=== PATIENT | male | born 1970 | race Caucasian/White ===

== ENCOUNTER 2019-05-04 12:49 | Emergency (ER) | payer BC, SELFPAY ==
[2019-05-04 12:49] VITALS: BP 157/88; PULSE 71; RESP 16; TEMP 36.6; O2SAT 99; BMI 28.0
--- NOTE | 2019-05-04 13:05 | CT_ITS ---
STUDY: CT ABDOMEN AND PELVIS WITH CONTRAST REASON FOR EXAM: Male, 48 years old. Abdominal pain. History of diverticulitis. RADIATION DOSAGE (If Supplied By Facility): CTDIvol = ( 14.46 ) mGy, DLP = ( 962.00 ) mGycm TECHNIQUE: Transaxial images were obtained from the dome of the diaphragm to the symphysis pubis with oral contrast. IV/Oral Isovue 300 100mL was administered. Sagittal and coronal images were reconstructed. Individualized dose optimization techniques were used for this CT. COMPARISON: None. FINDINGS: The visualized lung bases are unremarkable. The visualized portions of the heart are within normal limits. There is decreased attenuation of the liver consistent with steatosis. There is hepatomegaly. Normal gallbladder and extrahepatic biliary system. Normal spleen. Normal pancreas. Normal bilateral adrenal glands. Normal right kidney. Normal left kidney. Normal visualized stomach. Normal small intestine. There is a 7 cm segment of bowel wall thickening, diverticulitis, and pericolonic stranding in the mid descending colon. This is probably diverticulitis, but a more significant process is not excluded and follow-up colonoscopy recommended after treatment. No evidence for abscess or perforation. The appendix is visualized and appears normal. Normal abdominal aorta. Normal inferior vena cava. Normal retroperitoneum. Normal urinary bladder. There is enlargement of the prostate gland. Normal abdominal wall. There are diffuse degenerative changes of the visualized lumbar spine. CT/Abdomen/Pelvis WITH Contrast IMPRESSION: Inflammatory process of the mid descending colon most likely diverticulitis, but the length of the processes somewhat atypical and follow-up recommended. Electronically Signed: Elías Arias MD at 15:36 EDT , Service support ,
--- NOTE | 2019-05-04 13:06 | ED.DCSUM_ITS ---
History of Present Illness Chief Complaint: Abd Pain Informant: Patient Onset: Days - 3 days Context: Gradual Onset Timing: Waxes and wanes Current Severity: Moderate Maximum Severity: Moderate Narrative: Patient has a history of diverticulosis and is noted increased left lower quadrant abdominal pain for the past 3 days. He had some chills last evening, no fever. Poor appetite has been noted. No difficulty with bowel movements. Past Medical History - Allergies and Home Meds Allergies/Adverse Reactions: Allergies No Known Allergies Allergy (Verified 05/04/19 12:49) Primary Care Physician: Juan M Smith MD [Primary Care Provider] - Prior records reviewed: Yes Past Medical History: - - Reviewed Lives: With Family Review of Systems General: Reports: Chills. Denies: Fever Eyes: Denies: Visual changes - bilaterally ENT: Denies: Bilateral ear pain Cardiovascular: Denies: Chest pain Respiratory: Denies: Dyspnea Gastrointestinal: Reports: Abdominal pain. Denies: Vomiting, Diarrhea, Constipation Genitourinary: Denies: Dysuria Musculoskeletal: Denies: Myalgias Skin: Denies: Rash Neurological: Denies: Headache Hematologic: Denies: Easy bruising Allergy: Denies: Uticaria Physical Exam Vital Signs/Narrative: Vital Signs Temp Pulse Resp BP Pulse Ox 05/04/19 12:49 97.8 F 71 16 157/88 H 99 Inital Vital Signs reviewed: Yes General: Well nourished, Well developed Head: Normocephalic ENT: Moist mucous membranes Neck: Supple Cardiovascular: Regular rate, Regular rhythm Respiratory: No distress, CTA bilaterally Abdomen: Soft, Tender - Moderate tenderness to the left lower quadrant with some guarding and rebound., Guarding, Rebound tenderness, Hypoactive bowel sounds Extremities: Nontender Skin: Normal color Neurological: Alert, Oriented x3 Psychological: Normal affect Diagnostic/Tx/Re-eval Impressions Abdomen/Pelvis CT 05/04/19 13:05 IMPRESSION: Inflammatory process of the mid descending colon most likely diverticulitis, but the length of the processes somewhat atypical and follow-up recommended. Electronically Signed: Elías Arias MD at 15:36 EDT , Service support , 05/04/19 13:05 Abdomen/Pelvis WITH Contrast [CT] Stat Laboratory Results 05/04/19 05/04/19 05/04/19 13:09 13:09 13:28 WBC 8.7 RBC 4.46 L Hgb 13.7 Hct 42.1 MCV 94.4 H MCH 30.7 MCHC 32.5 RDW Std Deviation 43.6 RDW Coeff of Julissa 12.4 Plt Count 240 MPV 8.7 Immature Gran % (Auto) 0.300 Neut % (Auto) 70.4 H Lymph % (Auto) 17.4 L [place] % (Auto) 10.9 H Eos % (Auto) 0.8 Baso % (Auto) 0.2 Absolute Neuts (auto) 6.1 Absolute Lymphs (auto) 1.51 Nucleated RBC % 0 Sodium 139 Potassium 4.0 Chloride 106 Carbon Dioxide 28.0 Anion Gap 5 BUN 9 Creatinine 0.93 Estim Creat Clear Calc 95.03 Est GFR (MDRD) Af Amer 110 Est GFR (MDRD) Non-Af 91 BUN/Creatinine Ratio 9.6 L Glucose 100 Calcium 9.2 Urine Color Yellow Urine Clarity Clear Urine pH 6.0 Ur Specific [place] 1.015 Urine Protein Negative Urine Glucose (UA) Normal Urine Ketones Negative Urine Occult Blood Negative Urine Nitrite Negative Urine Bilirubin Negative Urine Urobilinogen Normal Ur Leukocyte Esterase Negative Urine RBC 0 SEEN Urine WBC 0 SEEN Ur Squamous Epith Cells 0 SEEN Urine Bacteria 0 SEEN Urine Mucus 0 SEEN - Medical Decision Making She was given Toradol and IV fluids here. On repeat evaluation he is resting comfortably. He will be treated with a course of Augmentin, first dose given here. ED Disposition - Plan for ED Patient: Disposition: Home or Assisted Living Diagnosis: Diverticulitis Instructions: Diverticulitis Prescriptions: Amox/Clavulanate Tablet [Augmentin Tablet] 875 mg PO Q12H #20 tablet Referrals: Juan M Smith MD [Primary Care Provider] - 1 Week
[2019-05-04 13:16] LABS: Absolute Lymphocyte Count 1.51 X10^3/uL (0.83-4.51); Absolute Neutrophil Count 6.1 X10^3/uL (2.0-7.7); Basophil# 0.02 X10^3/uL; Basophil% 0.2 % (0-1); Eosinophil# 0.07 X10^3/uL; Eosinophils% 0.8 % (0-5); Hematocrit 42.1 % (40-54); Hemoglobin 13.7 g/dL (13.0-16.5); Lymphocyte # 1.51 X10^3/ul (4.0); Lymphocyte % 17.4 % (19-41); Mean Corp Hgb Conc 32.5 g/dL (32-36); Mean Corpuscular Hgb 30.7 pg (27.0-32.0); Mean Corpuscular Volume 94.4 fL (80-94); Mean Platelet Vol. 8.7 fl (6.2-12.0); Monocyte# 0.95 X10^3/uL; Monocyte% 10.9 % (0-10); NRBC Flagged by Analyzer 0 % (0-5); Neutrophil % 70.4 % (47-70); Platelet Count 240 K/mm3 (150-450); RBC Distribution Width CV 12.4 % (11.6-14.6); RBC Distribution Width SD 43.6 fl (35.1-43.9); Red Blood Count 4.46 M/mm3 (4.6-6.2); White Blood Count 8.7 K/mm3 (4.4-11.0)
[2019-05-04] MEDS: 0.9% Normal Saline 1,000 ML 150 ML IV (13:26)
[2019-05-04] MEDS: Ketorolac 30 MG/ML Syringe IV (13:27)
[2019-05-04 13:30] LABS: Anion Gap 5 (5-15); BUN 9 mg/dL (7-18); BUN/Creat Ratio 9.6 RATIO (10-20); Calcium,Total 9.2 mg/dL (8.5-10.1); Chloride 106 mmol/L (98-107); Creatinine, Serum 0.93 mg/dL (0.70-1.30); EST Glomerular Filtration Rate 91 mL/min (>60); Est Glom Filt Rate - Afr Amer 110 mL/min (>60); Estimated Creatinine Clearance 95.03 ml/min; Glucose 100 mg/dL (74-106); Sodium Level 139 mmol/L (136-145)
[2019-05-04 13:36] LABS: Bacteria 0 SEEN /hpf (None Seen); Mucous, Urine 0 SEEN /hpf (<or=2+); Red Blood Cells-Urine 0 SEEN /hpf (0-5); Squamous Epithelial Cells - UA 0 SEEN /hpf (0-5); White Blood Cells 0 SEEN /hpf (0-5)
[2019-05-04 14:04] LABS: Color, Urine Yellow (Yellow); Glucose, Dipstick Normal (Normal); Ketone-Dipstick Negative (Negative); Leukocyte Esterase-Dipstick Negative /ul (Negative); Nitrite-Dipstick Negative (Negative); Occult Blood-Urine Negative /ul (Negative); Protein-Dipstick Negative (Negative); Specific Gravity, Urine 1.015 (1.002-1.030); Urine Bilirubin Dipstick Negative (Negative); Urine Clarity Clear (Clear); Urine Urobilinogen Normal (Normal)
[2019-05-04 15:47] VITALS: RESP 16
[2019-05-04] MEDS: Amox/Clavulanate 875 MG Tablet PO (16:58)
[2019-05-04 16:59] VITALS: BP 131/69; PULSE 72; RESP 15; O2SAT 98
== END 2019-05-04 17:00 | disposition home or self-care (01) ==
PROVIDERS: Emergency Provider Emergency Medicine; Family Provider Family Medicine; PCP Family Medicine
DX: K57.92 Diverticulitis of intestine, part unspecified, without perforation or abscess without bleeding (principal)
CPT/HCPCS: 74177; 80048; 81001; 85025; 96361; 96374; 99284; Q9967; A4216

== ENCOUNTER 2020-01-10 07:48 | Day surgery (SDC) | payer BC, SELFPAY ==
[2020-01-10] VITALS (7 sets, daily range): BP systolic 87–140; BP diastolic 51–91; PULSE 60–71; RESP 16; TEMP 36.1–36.8; O2SAT 97–100; BMI 28.3
--- NOTE | 2020-01-10 07:58 | PCM.HP.STD ---
Problem List (1) Screening for intestinal cancer Status: Acute History of Present Illness Date of Admission: 01/10/20 The patient is a 49 year old M who presents for screening colonoscopy today. He has not had a previous procedure. He presents via open access. Denies any abdominal pain bright red blood per rectum or melena. No abdominal pain. No family history of colon cancer or colon polyps. He otherwise states that he is enjoying good health. He tolerated the bowel prep. Past Medical History Allergies No Known Allergies Allergy (Verified 12/30/19 12:02) Home Medications: Ambulatory Orders Medication Instructions Recorded Levothyroxine Sodium 25 mcg PO DAILY 05/04/19 Losartan Potassium 50 mg PO DAILY 05/04/19 Smoking Status: Never smoker Tobacco Use: Non-smoker Review of Systems Constitutional: Denies: Fever Cardiovascular: Denies: Chest Pain Respiratory: Denies: Cough, Shortness of Breath Gastrointestinal: Denies: Abdominal Pain, Melena Endocrine: Denies: Change in Body Habitus VTE Information - Inpt Only VTE Present on Admission: No Patient Problems: Active and Suspected Problems Screening for intestinal cancer (Acute) - Physical Exam Vitals/I&O's: Body Mass Index (BMI) 28.0 General: Alert, Oriented x3, Cooperative, No apparent distress Oral: Moist Mucosa Lungs: Clear to auscultation, Normal air movement Cardiovascular: Regular rate, Regular Rhythm Abdomen: Bowel Sounds Present, Soft, Non Tender Extremities: No Calf Tenderness Neurological: - - Normal cognition Psych/Mental Status: Normal Affect Assessment/Plan All Active Problems Screening for intestinal cancer (Acute) I recommend to the patient a colonoscopy with possible biopsy or polypectomy is indicated. He is aware of the technique, benefit, risks, alternatives. He has had an opportunity to ask and have questions answered. He presents via an open access. We will proceed as noted. Greg Hill M.D., F.A.C.S. Procedure Criteria Procedure Type: Elective COVID Risk Discussion: The surgeon/proceduralist and patient have discussed in detail the risk of exposure to and/or potential harm posed by the COVID-19 virus with having a surgery/procedure at this time versus the risk of delaying the surgery/procedure. It is not possible to know either the risk of delaying the surgery or procedure or chance of getting an infection with perfect accuracy, but a joint decision was made between the patient and the surgeon/proceduralist to proceed at this time with the scheduled surgery/procedure as indicated on the consent form.
--- NOTE | 2020-01-10 08:54 | OP.COLON_ITS ---
Patient Name: Israel Beltran Procedure Date: 01/10/2020 8:29 AM Date of : 1970 Age: 49 Procedure: Colonoscopy Indications: Screening for colorectal malignant neoplasm Providers: Greg Hill MD Referring MD: Juan M Smith Medicines: See the Anesthesia note for documentation of the administered medications Patient Profile: Last Colonoscopy: none. The patient's first colonoscopy is today. Complications: No immediate complications. Procedure: Pre-Anesthesia Assessment: - Prior to the procedure, a History and Physical was performed, and patient medications and allergies were reviewed. The patient's tolerance of previous anesthesia was also reviewed. The risks and benefits of the procedure and the sedation options and risks were discussed with the patient. All questions were answered, and informed consent was obtained. Prior Anticoagulants: The patient has taken no previous anticoagulant or antiplatelet agents. ASA Grade Assessment: II - A patient with mild systemic disease. After reviewing the risks and benefits, the patient was deemed in satisfactory condition to undergo the procedure. After I obtained informed consent, the scope was passed under direct vision. Throughout the procedure, the patient's blood pressure, pulse, and oxygen saturations were monitored continuously. The pediatric colonoscope was introduced through the anus and advanced to the cecum, identified by appendiceal orifice and ileocecal valve. The colonoscopy was performed without difficulty. The patient tolerated the procedure well. The quality of the bowel preparation was good. The ileocecal valve and the appendiceal orifice were photographed. Scope In: 8:36:14 AM Scope Withdrawal Time 0 hours 6 minutes 59 seconds Scope Out: 8:48:41 AM Total Procedure Duration Time 0 hours 12 minutes 27 seconds Findings: Hemorrhoids were found on perianal exam. Normal prostate Multiple diverticula were found in the entire colon. The exam was otherwise without abnormality. Impression: - Hemorrhoids found on perianal exam. - Diverticulosis in the entire examined colon. - The examination was otherwise normal. - No specimens collected. Recommendation: - Discharge patient to home. - Resume previous diet. - Continue present medications. - Repeat colonoscopy in 10 years for screening purposes. Procedure Code(s): --- Professional --- 84235, Colonoscopy, flexible; diagnostic, including collection of specimen(s) by brushing or washing, when performed (separate procedure) Diagnosis Code(s): --- Professional --- Z12.11, Encounter for screening for malignant neoplasm of colon K64.9, Unspecified hemorrhoids K57.30, Diverticulosis of large intestine without perforation or abscess without bleeding CPT copyright 2017 [employer]. All rights reserved. The codes documented in this report are preliminary and upon layboy tender review may be revised to meet current compliance requirements. Greg Hill MD 01/10/2020 8:54:03 AM This report has been signed electronically. Number of Addenda: 0 Note Initiated On: 01/10/2020 8:29 AM
--- NOTE | 2020-01-10 08:54 | OP.CCLET_ITS ---
01/10/2020 Juan M Smith [address] [address] [place] [address] Re : Colonoscopy procedure for Israel Beltran Dear Dr. Smith This procedure was performed on Friday, January 10, 2020. My impressions and recommendations are as follows: Impressions : - Hemorrhoids found on perianal exam. - Diverticulosis in the entire examined colon. - The examination was otherwise normal. - No specimens collected. Recommendations : - Discharge patient to home. - Resume previous diet. - Continue present medications. - Repeat colonoscopy in 10 years for screening purposes. My findings are described in the full procedure note, which is enclosed. If I can be of further assistance, please feel free to contact me at Doctor phone number(s): Work: . Sincerely, Greg Hill MD 01/10/2020 8:54:03 AM This report has been signed electronically.
[2020-01-10] MEDS: Lactated Ringers 1,000 ML 100 ML IV (09:04)
== END 2020-01-10 09:30 | disposition home or self-care (01) ==
LOC: EN 07:49 → AC 07:51
PROVIDERS: PCP Family Medicine; Referring Provider Family Medicine; Visit Provider Surgery
PROC: 0DJD8ZZ Inspection of Lower Intestinal Tract, Via Natural or Artificial Opening Endoscopic (ICD-10-PCS; CPT 45378; principal; 2020-01-10 08:55)
DX: Z12.11 Encounter for screening for malignant neoplasm of colon (principal); K57.30 Diverticulosis of large intestine without perforation or abscess without bleeding; K64.9 Unspecified hemorrhoids; Z11.59 Encounter for screening for other viral diseases; I10 Essential (primary) hypertension; G47.30 Sleep apnea, unspecified; E06.9 Thyroiditis, unspecified; Z91.19 Patient's noncompliance with other medical treatment and regimen; Z87.19 Personal history of other diseases of the digestive system; Z79.899 Other long term (current) drug therapy
CPT/HCPCS: 45378; 87635; G2023; J7120; J2405; U0003

== ENCOUNTER → 2020-04-24 09:59 | Outpatient (CLI) | payer BC, SELFPAY ==
[2020-01-10 08:09] VITALS: BMI 28.3
--- NOTE | 2020-04-24 10:55 | RAD_ITS ---
HISTORY: RIGHT HEEL SPUR, heel pain ADDITIONAL HISTORY: None provided. EXAMINATION/TECHNIQUE: XR Foot Min 3 Views Right weightbearing Number of images including paperwork: 3 COMPARISON: None FINDINGS: BONES: No acute fracture. Achilles insertion enthesophyte with overlying soft tissue prominence. Calcifications along the plantar fascia. JOINTS: No subluxation. SOFT TISSUES: No distinct foreign body. RAD/Foot min 3 Views IMPRESSION: No acute osseous abnormality. Achilles insertion enthesophyte with associated soft tissue fullness. at 0715 Reported and signed by: Jenise Johnson MD Electronically Signed: Jenise Johnson MD at 7:14 EDT Tel , Service support ,
[2020-04-24 11:43] LABS: AST(SGOT) 26 U/L (15-37); Alanine Aminotransfer ALT/SGPT 56 U/L (16-61); Albumin, Serum 3.8 g/dL (3.2-5.0); Alkaline Phosphatase 49 U/L (45-117); Anion Gap 5 (5-15); BUN 14 mg/dL (7-18); BUN/Creat Ratio 14.2 RATIO (10-20); Calcium,Total 9.6 mg/dL (8.5-10.1); Chloride 107 mmol/L (98-107); Cholesterol 238 mg/dL (200); Creatinine, Serum 0.99 mg/dL (0.70-1.30); EST Glomerular Filtration Rate 85 mL/min (>60); Est Glom Filt Rate - Afr Amer 103 mL/min (>60); Globulin 3.9 g/dL (2.2-4.2); Glucose 106 mg/dL (74-106); High Density Lipoprotein 57 mg/dL; Potassium 4.1 mmol/L (3.5-5.1); Protein, Total 7.7 g/dL (6.4-8.2); Sodium Level 140 mmol/L (136-145); Thyroid Stim Hormone (TSH) 3.61 uIU/mL (0.358-3.74); Triglycerides 168 mg/dL; Very Low Density Lipoprotein 34 mg/dL (5-40)
== END ==
PROVIDERS: PCP Family Medicine; Referring Provider Podiatrist; Visit Provider Podiatrist
DX: M77.31 Calcaneal spur, right foot (principal); E03.9 Hypothyroidism, unspecified; Z12.5 Encounter for screening for malignant neoplasm of prostate; Z13.1 Encounter for screening for diabetes mellitus
CPT/HCPCS: 36415; 73630; 80053; 80061; 84153; 84443; G0103

== ENCOUNTER → 2020-05-11 07:09 | Outpatient (CLI) | payer BC, SELFPAY ==
[2020-01-10 08:09] VITALS: BMI 28.3
--- NOTE | 2020-05-11 07:20 | MRI_ITS ---
STUDY: MRI RIGHT ANKLE WITHOUT CONTRAST REASON FOR EXAM: Right heel pain with walking for 2 years, Achilles tendinitis. TECHNIQUE: Standardized fat and water weighted pulse sequences were obtained in all 3 orthogonal planes. COMPARISON: Radiographs 04/24/2020. FINDINGS: There is edema in the lateral subcutis adipose space. Normal posterior tibialis tendon. Normal flexor digitorum longus tendon. There is fluid in the flexor hallucis longus tendon sheath distal to the sustentaculum sharonda (inversion recovery sagittal image 12). Normal peroneus longus and brevis tendons. Normal tibialis anterior tendon. Normal extensor hallucis longus tendon. Normal extensor digitorum longus tendons. There is fusiform thickening and very mild increased intrasubstance signal in the Achilles tendon at the insertion (inversion recovery sagittal images 9, 10) measuring 1 cm in AP dimension. There is a posterior calcaneal enthesophyte and reactive bone edema within the enthesophyte and posterior tuberosity of the calcaneus at the Achilles tendon insertion (inversion recovery sagittal images 7-11). There is no discrete tear of the Achilles tendon. There is very mild retrocalcaneal bursitis (inversion recovery sagittal images 10, 11). There is mild edema in Kager''s fat triangle. There is calcification within the plantar fascia (T1 sagittal image 13), a sequelae of remote plantar fasciitis. Normal plantar calcaneal tubercles. Normal intrinsic muscles of the rearfoot. Normal distal tibiofibular syndesmotic ligamentous complex. Normal lateral ligamentous complex. There is a cyst in the sinus tarsi (inversion recovery sagittal images 5-7) measuring 1.9 cm in transverse dimension. Normal deltoid ligamentous complexes. Normal plantar calcaneonavicular (spring) ligament. Normal tibiotalar articulation. Normal talar dome. Normal subtalar articulations. Normal talonavicular articulation. Normal calcaneocuboid articulation. Normal navicular-cuneiform articulations. MRI/Lower Ext Joint Only (Routine) IMPRESSION: Insertional Achilles tendinosis with a posterior calcaneal enthesophyte and reactive bone edema in the posterior tuberosity of the calcaneus. Very mild retrocalcaneal bursitis and mild edema in Kager''s fat triangle. Calcification within the plantar fascia, a sequelae of remote plantar fasciitis. Fluid in the flexor hallucis longus tendon sheath. Cyst in the sinus tarsi. Electronically Signed: Bill Valencia MD at 9:10 EST Tel , Service support ,
== END ==
LOC: MRI 07:12
PROVIDERS: PCP Family Medicine; Referring Provider Podiatrist; Visit Provider Podiatrist
DX: M76.61 Achilles tendinitis, right leg (principal); M77.31 Calcaneal spur, right foot
CPT/HCPCS: 73721

== ENCOUNTER 2020-06-12 05:59 | Day surgery (SDC) | payer BC, SELFPAY ==
[2020-01-10 08:09] VITALS: BMI 28.3
--- NOTE | 2020-06-11 19:47 | PCM.HP.STD ---
Problem List (1) Achilles tendonosis of right lower extremity Status: Acute (2) Heel spur Status: Acute History of Present Illness Date of Admission: 06/12/20 Chief Complaint: Chronic pain to right posterior heel The patient is a 50 year old male is known to me from my private office where he had first presented a few years ago complaining of right posterior heel pain. A large spur was seen and conservative treatments were initiated which included NSAIDs, stretching, and appropriate shoes. When those methods failed to resolve pain, he presented for surgical intervention. Past Medical History Allergies No Known Allergies Allergy (Verified 06/04/20 13:43) Home Medications: Ambulatory Orders Medication Instructions Recorded Levothyroxine Sodium 25 mcg PO DAILY 05/04/19 Metoprolol Succinate 50 mg PO DAILY 06/04/20 Multivit-Min/Folic/Vit K/Lycop 1 ea PO DAILY 06/04/20 [Men's Daily Formula Tablet] Lives: Spouse/ Significant Other, With Family Smoking Status: Never smoker VTE Information - Inpt Only VTE Present on Admission: No VTE Mechan Device Prophylaxis: None VTE Pharm Prophylaxis ordered?: No Subjective: Severe pain to the right Achilles and posterior heel. It prevents him from doing activities he enjoys. Objective: RCE palpable to right posterior heel with slight increase in warmth and edema that did not resolve with conservative treatments. MRI revealed distal Achilles tendonosis without significant tears. Moderate heel spur is present. - Physical Exam Vitals/I&O's: Body Mass Index (BMI) 28.3 Skin: No breakdown Musculoskeletal: Tenderness - To right Achilles insertion. Psych/Mental Status: Normal Affect Microbiology Past 72 Hours 06/10/20 15:55 Interface Orders SARS-CoV-2 Antigen (Rapid) - Final Current Medications Cefazolin Sodium 2 gm/ Sodium (Chloride) 110 mls @ 150 mls/hr IV PREOP ONE Stop: 06/12/20 07:58 Assessment/Plan All Active Problems Screening for intestinal cancer (Acute) Achilles tendonosis of right lower extremity (Acute) Heel spur (Acute) retrocalcaneal exostosis right heel with distal Achilles tendonosis Plan: Risks, complications, alternative treatments were reviewed in detail. No guarantees noted. All questions were answered. Consent was reviewed and signed. He will present to [facility] on 06/12/20 for outpatient surgical intervention.
[2020-06-12 06:35] VITALS: BP 165/94; PULSE 60; RESP 18; TEMP 36.5; O2SAT 98; BMI 31.5
[2020-06-12] MEDS: Lactated Ringers 1,000 ML 100 ML IV ×2 (06:43→08:30)
--- NOTE | 2020-06-12 06:53 | EKG12_ITS ---
Test Reason : PRE-OP Blood Pressure : / mmHG Vent. Rate : 056 BPM Atrial Rate : 056 BPM P-R Int : 162 ms QRS Dur : 098 ms QT Int : 418 ms P-R-T Axes : 018 044 010 degrees QTc Int : 403 ms Sinus bradycardia Otherwise normal ECG No previous ECGs available Confirmed by DEBBI DEMARCO, ALBARO ([id number]), primer expeditor and drier AUDI EAST ([id number]) on 06/22/2020 9:21:48 AM Referred By: Mera Tapia Confirmed By:EMILIE WERNER MD
[2020-06-12] MEDS: Cefazolin 2 GM in 0.9% Normal Saline 100 ML IV (07:23)
[2020-06-12 09:17] VITALS: BP 140/83; BP 165/94; PULSE 55; RESP 18; TEMP 35.9; O2SAT 92
[2020-06-12 09:30] VITALS: BP 126/80; BP 165/94; PULSE 57; RESP 18; O2SAT 98
[2020-06-12 09:45] VITALS: BP 141/84; BP 165/94; PULSE 52; RESP 18; O2SAT 99
[2020-06-12 09:50] VITALS: BP 136/76; BP 165/94; PULSE 61; RESP 18; TEMP 36.1; O2SAT 95
[2020-06-12 10:25] VITALS: BP 165/94
--- NOTE | 2020-06-19 11:19 | PCM.OPRPT ---
Problem List (1) Achilles tendonosis of right lower extremity Status: Acute Comment: Pt is known to me from my private office. (2) Heel spur Status: Acute Qualifiers: Laterality: right Qualified Code(s): M77.31 - Calcaneal spur, right foot Report of Operation Date of Procedure: 06/12/20 Pre-Operative Diagnosis: Achilles tendonosis right foot with painful heel spur Post-Operative Diagnosis: same Surgery/Procedure Performed:: Resection of posterior right heel spur with repair of distal achilles tendon Description of Surgical Findings:: Moderate thickening of distal Achilles tendon with large retrocalcaneal spur Type of Anesthesia:: General/Regional - Post operative popliteal block Specimen's removed: bone and thickened tendon Drains: none Estimated Blood Loss (mL): minimal Description of Procedure: Pt was brought into the OR and following general anesthesia, was placed in a prone position. All prominences were well padded. The right lower leg and foot were scrubbed, prepped, and draped in the usual aseptic manner. An approximately 6cm linear longitudinal incision was made at the right posterior heel and distal Achilles tendon, slightly medial to the midline. The incision was deepened through sharp and blunt dissection, down to the level of the paratenon. All superficial bleeding vessels were cauterized and ligated as necessary. The paratenon was incision longitudinally and dissected from the Achilles superficially. Then, the Achilles was split centrally from about 4cm proximally, continuing distally to the insertion. The distal achilles was dissected from from its attachment on the large retrocalcaneal spur. Next, utilizing a sagittal saw, the spur was resected and passed from the operative field.All rough edges were smoothed and any spur was removed with Rongeurs. The wound was then flushed with copious amounts of NSS. The distal Achilles was then debrided and thinned sharply, removing excessive thickened tendon. Predrilling of the 4 holes of the hardware was performed, along with tapping manually. They were oriented posteriorly to anteriorly at the posterior calcaneus. The most proximal holes were then filled with the Arthrex Speedbridge dissolvable anchors. The fibertape was then passed through this distal tendon. The distal holes were filled the same manner, weaving the fibertape in an hour glass design as the distal tendon became attached to the heel. The excess sutures were trimmed so the hardware was flush with the heel. The wound was again flushed with NSS. Then, the paratenon was reapproximated and coapted utilizing 4-0 vicryl sutures. Subcutaneous tissues were reapproximated and coapted utilizing 3-0 vicryl sutures and skin was reapproximated and coapted utilizing 3-0 prolene sutures. A sterile compressive dressing consisting of the Jumpstart Antimicrobial Wound Dressing, 4x4 gauze, ABD pad, 4 Kerlix, cast padding and a well padded posterior splint. Jorge Alberto wrap applied. Pt tolerated procedure and anesthesia well. He was transferred to PACU with vital signs stable and vascular status intact to all toes of the right foot. After a period of post operative monitoring, he will be discharged home with written and oral post operative instructions. He is to keep the dressing clean, dry, intact, and be NWB to right foot. Rest, ice, elevate and perform ROM exercises to knee and toes. Call Dr. Tapia for all problems and follow in private office for all post operative care and if any problems arise. Post operative prescription for pain was written for Percocet and pt should take as directed. Popliteal block to be performed in PACU. Grafts/Implants Used: Arthrex Achilles Speed bridge - Complications none - Admit VTE Documentation VTE Present on Admission: No VTE Mechan Device Prophylaxis: None VTE Pharm Prophylaxis ordered?: No Reason prophylaxis not ordered:: Treatment Not Indicated
== END 2020-06-12 10:29 | disposition home or self-care (01) ==
LOC: SDC 06:01 → AC 06:01
PROVIDERS: PCP Family Medicine; Referring Provider Podiatrist; Visit Provider Podiatrist
PROC: (CPT 28899; principal; 2020-06-12 07:15)
DX: M76.61 Achilles tendinitis, right leg (principal); M77.31 Calcaneal spur, right foot; Z20.828 Contact with and (suspected) exposure to other viral communicable diseases; I10 Essential (primary) hypertension; E06.9 Thyroiditis, unspecified; G47.30 Sleep apnea, unspecified; Z87.19 Personal history of other diseases of the digestive system; Z79.899 Other long term (current) drug therapy
CPT/HCPCS: 01472; 27650; 28119; 87426; 93005; C9803; J7120; J2405

== ENCOUNTER → 2020-09-09 10:45 | Outpatient (CLI) | payer BC, SELFPAY ==
--- NOTE | 2020-09-09 11:05 | RAD_ITS ---
STUDY: X-RAY - RIGHT FOOT CLINICAL: Male, 50 years old. Calcaneal spur. Pain. TECHNIQUE: 3 view(s) of the foot. COMPARISON: 04/24/2020. FINDINGS: Calcaneal spur on the prior study is no longer present and likely surgically removed. Ossification of the plantar fascia unchanged. Normal visualized subtalar, talonavicular, calcaneocuboid, tarsal and tarsometatarsal articulations. Normal metatarsi. Normal metatarsophalangeal joint of the great toe. Normal tibial and fibular sesamoid bones. Normal interphalangeal joint of the great toe. Normal phalanges of the great toe. Normal second through fifth metatarsophalangeal joints. Normal interphalangeal joints and phalanges of the lesser toes. The soft tissue structures are unremarkable. RAD/Foot min 3 Views IMPRESSION: No calcaneal spur identified, likely surgically removed.. Stable ossification of the plantar fascia. Electronically Signed: Jd Anthony MD at 12:47 EST , Service support ,
== END ==
PROVIDERS: PCP Family Medicine; Referring Provider Podiatrist; Visit Provider Podiatrist
DX: M77.31 Calcaneal spur, right foot (principal)
CPT/HCPCS: 73630

== ENCOUNTER → 2024-02-02 | Outpatient (CLI) | payer BC, SELFPAY ==
--- NOTE | 2024-02-02 14:02 | RAD_ITS ---
EXAM: XR LEFT ANKLE COMPLETE, 3 OR MORE VIEWS CLINICAL INDICATION: Sprain of unspecified ligament of unspecified ankle, subsequent e TECHNIQUE: Frontal, lateral and oblique views of the left ankle. COMPARISON: No relevant prior studies available. FINDINGS: BONES/JOINTS: No acute fracture or subluxation. Posterior calcaneal enthesopathy. SOFT TISSUES: Posterior calcifications suggestive of chronic Achilles tendinosis. No soft tissue swelling or gas. RAD/Ankle min 3 Views IMPRESSION: No acute bone or joint abnormality. Chronic Achilles tendinosis. Electronically Signed: Walter Boo MD at 16:57 EDT ,
== END | disposition home or self-care (01) ==
PROVIDERS: PCP Family Medicine; Referring Provider Podiatrist; Visit Provider Podiatrist
DX: S93.409D Sprain of unspecified ligament of unspecified ankle, subsequent encounter (principal)
CPT/HCPCS: 73610

== ENCOUNTER → 2024-05-02 | Outpatient (CLI) | payer BC, SELFPAY ==
[2024-05-02 14:41] LABS: AST(SGOT) 21 U/L (15-37); Alanine Aminotransfer ALT/SGPT 37 U/L (16-61); Albumin, Serum 3.7 g/dL (3.2-5.0); Alkaline Phosphatase 60 U/L (45-117); Bilirubin, Direct 0.11 mg/dL (0.00-0.30); Globulin 3.6 g/dL (2.2-4.2); Protein, Total 7.3 g/dL (6.4-8.2)
== END | disposition home or self-care (01) ==
LOC: LAB 13:35
PROVIDERS: PCP Family Medicine; Referring Provider Podiatrist; Visit Provider Podiatrist
DX: B35.1 Tinea unguium (principal); B35.3 Tinea pedis
CPT/HCPCS: 36415; 80076

== ENCOUNTER → 2024-05-13 | Outpatient (CLI) | payer BC, SELFPAY ==
[2024-05-13 13:19] LABS: Anion Gap 8 (5-15); BUN 17 mg/dL (7-18); BUN/Creat Ratio 18.7 RATIO (10-20); Chloride 109 mmol/L (98-107); Cholesterol 182 mg/dL (200); Creatinine, Serum 0.91 mg/dL (0.70-1.30); EST Glomerular Filtration Rate 92 mL/min (>60); Est Glom Filt Rate - Afr Amer 111 mL/min (>60); Glucose 120 mg/dL (74-106); High Density Lipoprotein 59 mg/dL; PSA,Total - Annual Screen 2.36 ng/mL (0.00-4.00); Potassium 4.4 mmol/L (3.5-5.1); Sodium Level 138 mmol/L (136-145); T4 Free Direct 0.79 ng/dL (0.76-1.46); Triglycerides 195 mg/dL; Very Low Density Lipoprotein 39 mg/dL (5-40)
== END | disposition home or self-care (01) ==
LOC: LAB 11:42
PROVIDERS: PCP Family Medicine; Referring Provider Family Medicine; Visit Provider Family Medicine
DX: R73.9 Hyperglycemia, unspecified (principal); E78.2 Mixed hyperlipidemia; E03.9 Hypothyroidism, unspecified; I10 Essential (primary) hypertension; Z12.5 Encounter for screening for malignant neoplasm of prostate
CPT/HCPCS: 36415; 80048; 80061; 83036; 84153; 84439; 84443; G0103